=== PATIENT | male | born 1990 | race Caucasian/White ===

== ENCOUNTER 2016-02-14 12:35 | Emergency (ER) | payer BC, OTHER ==
[~2016-02-14] VITALS: Ht 165.1 cm; Wt 69.0 kg
[2016-02-14 12:38] VITALS: Ht 165.1 cm; Wt 69.0 kg
[2016-02-14] MEDS ORDERED: IBUPROFEN 600 MG TAB PO ONE (13:30)
--- NOTE | 2016-02-14 14:20 | RADRPT ---
PROCEDURE: XR Foot 3 Views. CLINICAL INDICATION: Low foot pain and trauma TECHNIQUE: AP, oblique and lateral views of the left foot were obtained. The images were reviewed on a PACS workstation. COMPARISON: None. FINDINGS: The osseous structures are intact. No destructive bony lesions are identified. Interosseous spaces are normal. Soft tissues surrounding the foot appear unremarkable. IMPRESSION: No visualized traumatic injury. If there is high clinical suspicion for traumatic injury, further evaluation with CT should be consi dered. RPTAT: AA .Oral Padron MD, MD Date Time Electronically viewed and signed by .Oral Padron MD, MD on 02/14/2016 14:20 .P/
--- NOTE | 2016-02-14 15:14 | ERD ---
ER Documentation Chief Complaint Date/Time DATE: 02/14/16 TIME: 15:10 Chief Complaint left second toe injured saturday HPI Patient is a 25-year-old male who presents to the ED for left toe pain. He states that 4 days ago a chair went on his left foot and complains of fourth digit left toe pain. He states that he is able to walk but complains of bruising and pain. He denies any numbness or tingling. He denies radiation of pain. He denies calf pain or knee pain. He denies chest pain, cough or shortness of breath. Denies difficulty breathing. Denies recent travel. He denies difficulty moving his toes. States that he has received a recent tetanus shot. He is not taking any medication, ice or heat at the area. Denies any other symptoms. ROS All systems reviewed and are negative except as per history of present illness. Medications Home Meds Active Scripts Ibuprofen* (Motrin*) 600 Mg Tab, 600 MG PO Q8, #30 TAB Prov:ZAY ARSHAD PA-C 02/14/16 Allergies Allergies: Coded Allergies: No Known Allergy (Unverified , 02/14/16) PMhx/Soc Medical and Surgical Hx: pt denies Medical Hx, pt denies Surgical Hx History of Surgery: Yes (left elbow, right thigh removed tumor) Anesthesia Reaction: No Hx Neurological Disorder: No Hx Respiratory Disorders: No Hx Cardiac Disorders: No Hx Psychiatric Problems: No Hx Miscellaneous Medical Probl: No Hx Alcohol Use: Yes (socially) Hx Substance Use: No Hx Tobacco Use: No Smoking Status: Never smoker FmHx Family History: No coronary disease, No diabetes, No other Physical Exam Vitals Vital Signs Date Time Temp Pulse Resp B/P Pulse Ox O2 Delivery O2 Flow Rate FiO2 02/14/16 15:50 98.7 66 18 128/72 99 Room Air 02/14/16 12:38 98.7 81 18 133/77 99 Physical Exam GENERAL: Well-developed, well-nourished male. Appears in no acute distress. HEAD: Normocephalic, atraumatic. LUNG: Clear to auscultation bilaterally. No rhonchi, wheezing, rales or coarse breath sounds. HEART: Regular rate and rhythm. No murmurs, rubs or gallops. Extremities: Equal pulses bilaterally. No peripheral clubbing, cyanosis or edema. No unilateral leg swelling. NEUROLOGIC: Alert and oriented. Moving all four extremities. 5/5 strength in all extremities. Normal speech. nonsteady gait ORTHO: left 4th and 3rd toe bruising. no swelling or deformities noted. no drainage, open wounds or lacerations. no signs of infection. Range of motion intact. Pulses intact bilaterally. No numbness or tingling. Negative Homans sign. No calf tenderness. no proximal fibula pain. SKIN: Normal color. Warm and dry. No rashes or lesions. Capillary refill < 2 seconds Results 24 hrs Current Medications Medications (Trade) Dose Ordered Sig/Belkis Route PRN Reason Start Time Stop Time Status Last Admin Dose Admin Ibuprofen (Motrin) 600 mg ONCE ONCE PO 02/14/16 13:30 02/14/16 13:31 DC 02/14/16 13:32 Procedures/MDM ER COURSE: I kept the patient and/or family informed of laboratory and diagnostic imaging results throughout the emergency room course. EKG, MONITORS, & DIAGNOSTIC IMAGING: [place] [id number] Radiology Main Line: [phone] DIAGNOSTIC IMAGING REPORT Patient: AMRIT MORALES : 1990 Age: 25 Sex: M MR #: [id number] DOS: 02/14/16 1351 Ordering MD: NOEMI MALLOY PA-C Location: [facility] Room/Bed: PROCEDURE: XR Foot 3 Views. CLINICAL INDICATION: Low foot pain and trauma TECHNIQUE: AP, oblique and lateral views of the left foot were obtained. The images were reviewed on a PACS workstation. COMPARISON: None. FINDINGS: The osseous structures are intact. No destructive bony lesions are identified. Interosseous spaces are normal. Soft tissues surrounding the foot appear unremarkable. IMPRESSION: No visualized traumatic injury. If there is high clinical suspicion for traumatic injury, further evaluation with CT should be considered. RPTAT: AA .Oral Padron MD, Date Time Electronically viewed and signed by .Oral Padron MD, on 02/14/2016 14:20 .P/ CC: MIHAELA MALLOY PA-C PROCEDURES: ED melany tape. Walking boot assessment: Neurovascularly intact post melany tape placement and boot with good fit. MEDICATIONS: Ibuprofen. Patient tolerated medication well with no adverse reaction. MEDICAL DECISION MAKING: This is a 25-year-old male who presents with left toe pain. Vital signs were reviewed. Patient is afebrile. Patient is not hypoxic. She is not toxic or ill- appearing. Patient likely has a toe sprain. Low suspicion for dislocation, fracture, septic joint, compartment syndrome, osteomyelitis, cellulitis, avascular necrosis, neurological injury, vascular injury, tendon laceration. However cannot rule out tendon or ligament injury. Low suspicion for necrotizing fasciitis, SJS, toxic epidermal necrolysis, Kawasaki, erythema multiforme, gangrene, scarlet fever, meningococcemia, sepsis, anaphylaxis, cellulitis. DISCHARGE: At this time, patient is stable for discharge and outpatient management with no new complaints during the ER course. Patient was sent home with ibuprofen. Patient to follow-up with orthopedics this week. Patient will be discharged home with instructions to recheck for new or worsening symptoms such as fever, nausea, weakness, LOC and to follow up with primary care in the next 1-2 days. Patient was advised to return to the ER for any new or worsening symptoms. Plan was discussed and patient and/or family understands and agrees. Home instructions were given. Departure Diagnosis: Primary Impression: Injury of toe Encounter type: initial encounter Laterality: left Qualified Code: S99.922A - Injury of toe, left, initial encounter Condition: Stable ZAY ARSHAD PA-C Feb 14, 2016 15:14
[2016-02-14] MEDS ORDERED: IBUP-1542 PO (15:26)
[2016-02-14 15:50] VITALS: BP 128/72; PULSE 66; RESP 18; TEMP 98.7
== END 2016-02-14 15:50 | disposition home or self-care (01) ==
LOC: FTE 12:35
DX: S99.922A Unspecified injury of left foot, initial encounter (principal); W22.8XXA Striking against or struck by other objects, initial encounter; Y92.9 Unspecified place or not applicable
CPT/HCPCS: 73630; Z7502; Z7610